=== PATIENT | female | born 1945 | race Caucasian/White ===

== ENCOUNTER → 2018-01-13 14:31 | Outpatient (CLI) | payer MEDICARE, SELFPAY ==
[2018-01-13 16:25] LABS: Absolute Lymphocyte Count 1.25 X10^3/ul (0.83-4.51); Absolute Neutrophil Count 4.1 X10^3/uL (2.0-7.7); Basophil# 0.02 X10^3/uL; Basophil% 0.3 % (0-1); Eosinophil# 0.07 X10^3/uL; Eosinophils% 1.1 % (0-5); Hematocrit 39.6 % (37-47); Hemoglobin 13.1 g/dl (12.0-15.0); Lymphocyte # 1.25 X10^3/ul (4.0); Lymphocyte % 20.4 % (19-41); Mean Corp Hgb Conc 33.1 g/gl (32-36); Mean Corpuscular Hgb 30.7 pg (27.0-32.0); Mean Corpuscular Volume 92.7 fL (81-99); Mean Platelet Vol. 10.4 fl (6.2-12.0); Monocyte# 0.67 X10^3/uL; Monocyte% 10.9 % (0-10); Neutrophil # 4.12 X10^3/uL (2.7-7.7); Neutrophil % 67.3 % (47-70); Platelet Count 210 K/mm3 (150-450); RBC Distribution Width CV 12.5 % (11.6-14.6); RBC Distribution Width SD 42.1 fl (35.1-43.9); Red Blood Count 4.27 M/mm3 (4.2-5.4); White Blood Count 6.1 K/mm3 (4.4-11.0)
[2018-01-13 16:32] LABS: POSITIVE COUNT NO; POSITIVE DIFFERENTIAL NO; POSITIVE MORPHOLOGY NO
[2018-01-13 16:49] LABS: ALB/GLOB Ratio 1.2 RATIO (0.9-2.4); AST(SGOT) 15 U/L (15-37); Alanine Aminotransfer ALT/SGPT 15 U/L (13-56); Albumin, Serum 4.2 g/dL (3.2-5.0); Alkaline Phosphatase 72 U/L (45-117); Anion Gap 8 (5-15); BUN 18 mg/dL (7-18); BUN/Creat Ratio 18.3 RATIO (10-20); Calcium,Total 9.1 mg/dL (8.5-10.1); Chloride 103 mmol/L (98-107); Creatinine, Serum 0.98 mg/dL (0.55-1.02); EST Glomerular Filtration Rate 59 mL/min (>60); Est Glom Filt Rate - Afr Amer 71 mL/min (>60); Globulin 3.6 g/dL (2.2-4.2); Glucose 88 mg/dL (74-106); Magnesium 2.2 mg/dL (1.6-2.6); Potassium 3.7 mmol/L (3.5-5.1); Protein, Total 7.8 g/dL (6.4-8.2); Rheumatoid Factor < 10.0 IU/mL (<15); Sodium Level 140 mmol/L (136-145); Thyroid Stim Hormone (TSH) 1.74 uIU/mL (0.358-3.74)
[2018-01-13 16:51] LABS: Erythrocyte Sedimentation Rate 3 mm/hr (0-30)
[2018-01-15 15:31] LABS: ANTINUCLEAR ANTIBODIES DIRECT Negative (Negative)
== END ==
PROVIDERS: Family Provider Family Medicine; PCP Family Medicine; Visit Provider Family Medicine
DX: I73.00 Raynaud's syndrome without gangrene (principal); I99.9 Unspecified disorder of circulatory system; R53.83 Other fatigue
CPT/HCPCS: 80053; 83735; 84443; 85025; 85652; 86038; 86431

== ENCOUNTER → 2018-01-26 09:47 | Outpatient (CLI) | payer MEDICARE, SELFPAY ==
--- NOTE | 2018-01-31 18:39 | LEAS_ITS ---
Arterial Study - Arterial Study Arterial Study: This is a 72-year-old female with suspected peripheral arterial occlusive disease. She was brought to the non-invasive vascular laboratory for the purpose of bilateral noninvasive lower extremity arterial assessment. Doppler signal assessment was used to evaluate the pulses at ankle level bilaterally. The posterior tibial and dorsalis pedis pulses were biphasic bilaterally. Segmental limb pressures were obtained bilaterally. The right ankle pressure, as determined by posterior tibial pulse, could not be determined due to the noncompressibility of the vasculature. The right ankle pressure, as determined by dorsalis pedis pulse, was measured at 189 mmHg. The right digital pressure could not be determined due to the noncompressibility of the vasculature. The left ankle pressure, as determined by posterior tibial and dorsalis pedis pulses , could not be determined due to the noncompressibility of the vasculature. The left digital pressure could not be determined due to the noncompressibility of the vasculature. The resting right ankle-brachial index was calculated to be 0.80. The resting left ankle-brachial index could not be determined due to the noncompressibility of the vasculature. Digital-brachial indices could not be determined on either side due to the noncompressibility of the vasculature. Impression: Based upon the findings of this resting noninvasive lower extremity study, there is evidence of diffuse arterial calcification in the lower extremities bilaterally. As a result, the resting ankle-brachial indices and digital-brachial indices could not be reliably obtained. The resting right ankle-brachial index is 0.80, but may be factitiously elevated due to arterial calcification. An ankle-brachial index of 0.80 on the right is suggestive of mild to moderate arterial occlusive disease, although the degree of arterial occlusive disease may be more severe, and not accurately reflected in this study. As a result of arterial calcification, the resting left ankle-brachial index could not be determined, nor could digital-brachial indices be determined bilaterally.
== END ==
PROVIDERS: Family Provider Family Medicine; PCP Family Medicine; Visit Provider Family Medicine
DX: I73.00 Raynaud's syndrome without gangrene (principal)
CPT/HCPCS: 93922

== ENCOUNTER 2018-02-04 06:01 | Observation (INO) | payer MEDICARE, SELFPAY ==
[2018-02-04] VITALS (10 sets, daily range): BP systolic 141–195; BP diastolic 46–61; PULSE 77–106; RESP 12–18; TEMP 36.4–37.5; O2SAT 97–100; BMI 19.7
--- NOTE | 2018-02-04 06:23 | EKG12_ITS ---
Test Reason : PALPITATIONS Blood Pressure : / mmHG Vent. Rate : 090 BPM Atrial Rate : 090 BPM P-R Int : 130 ms QRS Dur : 088 ms QT Int : 376 ms P-R-T Axes : 070 057 055 degrees QTc Int : 459 ms Sinus rhythm with occasional Premature ventricular complexes Consider voltage criteria for LVH Left ventricular hypertrophy Abnormal ECG Confirmed by MAURICE SULTANA, DARRELL ([id number]), proposal editor TADEO ALLEN ([id number]) on 02/09/2018 3:19:27 PM Referred By: VIDHYA Confirmed By:DARRELL RICHARDS MD
--- NOTE | 2018-02-04 06:23 | CT_ITS ---
STUDY: CTA CHEST REASON FOR EXAM: Female, 72 years old. Chest pain. Tachycardia. Anxiety. Possible aneurysm. RADIATION DOSAGE (If Supplied By Facility): CTDIvol = ( 11.56 ) mGy, DLP = ( 470.98 ) mGycm TECHNIQUE: The examination was performed with the intravenous administration of 75mL ml of Isovue 370 contrast material. Post-processing of the angiographic images was performed, with multiplanar reformation and 3D reconstruction. Individualized dose optimization techniques were used for this CT. COMPARISON: None. FINDINGS: Irregular appearance of both thyroid lobes, likely with nodules. Not a dedicated CT angiogram of the pulmonary arteries. More a CT angiogram of the aorta. No large pulmonary emboli are identified centrally. Normal thoracic aorta and visualized great vessels. There is no demonstrated aortic dissection. No thoracic aortic aneurysm. Normal heart and pericardium. Normal mediastinum. Normal hilar regions. Normal visualized trachea and bronchi. The lungs are hyper expanded, with flattening of the hemidiaphragms. Lungs are clear. No concerning masses or nodules. Normal pleura. Normal chest wall structures. There are degenerative changes of thoracic spine. IMPRESSION: 1. Negative for thoracic aortic aneurysm or dissection 2. No large central pulmonary embolism 3. COPD. Lungs are clear. Electronically Signed: Louis Martins DO at 7:42 EDT Tel , Service support , STUDY: CTA OF THE ABDOMINAL AORTA REASON FOR EXAM: Female, 72 years old. Possible aortic aneurysm. Chest pain and back pain RADIATION DOSAGE (If Supplied By Facility): CTDIvol = ( 11.56 ) mGy, DLP = ( 470.98 ) mGycm TECHNIQUE: Axial CT angiography multi-detector data acquisition was obtained from the hemidiaphragms to the pubic symphysis following intravenous administration of 75mL ml of Isovue 370 contrast. Axial images and MIP images were reconstructed from the axial data set. Post-processing of the angiographic images was performed, with multiplanar reformation and 3D reconstruction. Individualized dose optimization techniques were used for this CT. TECHNICAL QUALITY: Good COMPARISON: None. Descriptors of Narrowing: None (0%) Mild (< 50%) Moderate (50-70%) Severe (70-90%) Subtotal/Total Occlusion (90-100%) Non-Evaluable (technically non-diagnostic FINDINGS: Abdominal aorta: No demonstrated narrowing. Celiac and superior mesenteric arteries: There is mild diffuse narrowing. Inferior mesenteric artery: There is mild diffuse narrowing. Right renal artery(arteries): There is mild diffuse narrowing. Left renal artery(arteries): There is mild diffuse narrowing. Right common iliac artery: No demonstrated narrowing. Right external iliac artery: No demonstrated narrowing. Right internal iliac artery: No demonstrated narrowing. Left common iliac artery: No demonstrated narrowing. Left external iliac artery: No demonstrated narrowing. Left internal iliac artery: No demonstrated narrowing. No evidence of abdominal aortic aneurysm or dissection. Mild atherosclerotic disease of the abdominal aorta. Grossly unremarkable appearance of the liver, spleen, pancreas, gallbladder, adrenal glands. Both kidneys are grossly within normal limits. Unremarkable appearance of the stomach and small bowel. Large bowel demonstrates some chronic diverticulosis and fecal retention. Unremarkable appendix. No concerning lymphadenopathy. Unremarkable bladder. Uterine atrophy is noted. Osseous degenerative changes. CT/CTA Chest W/WO Contrast IMPRESSION: 1. Negative for abdominal aortic aneurysm or dissection 2. Remainder is within normal limits Electronically Signed: Louis Martins DO at 7:45 EDT Tel , Service support ,
--- NOTE | 2018-02-04 06:24 | CT_ITS ---
STUDY: CTA CHEST REASON FOR EXAM: Female, 72 years old. Chest pain. Tachycardia. Anxiety. Possible aneurysm. RADIATION DOSAGE (If Supplied By Facility): CTDIvol = ( 11.56 ) mGy, DLP = ( 470.98 ) mGycm TECHNIQUE: The examination was performed with the intravenous administration of 75mL ml of Isovue 370 contrast material. Post-processing of the angiographic images was performed, with multiplanar reformation and 3D reconstruction. Individualized dose optimization techniques were used for this CT. COMPARISON: None. FINDINGS: Irregular appearance of both thyroid lobes, likely with nodules. Not a dedicated CT angiogram of the pulmonary arteries. More a CT angiogram of the aorta. No large pulmonary emboli are identified centrally. Normal thoracic aorta and visualized great vessels. There is no demonstrated aortic dissection. No thoracic aortic aneurysm. Normal heart and pericardium. Normal mediastinum. Normal hilar regions. Normal visualized trachea and bronchi. The lungs are hyper expanded, with flattening of the hemidiaphragms. Lungs are clear. No concerning masses or nodules. Normal pleura. Normal chest wall structures. There are degenerative changes of thoracic spine. IMPRESSION: 1. Negative for thoracic aortic aneurysm or dissection 2. No large central pulmonary embolism 3. COPD. Lungs are clear. Electronically Signed: Louis Martins DO at 7:42 EDT Tel , Service support , STUDY: CTA OF THE ABDOMINAL AORTA REASON FOR EXAM: Female, 72 years old. Possible aortic aneurysm. Chest pain and back pain RADIATION DOSAGE (If Supplied By Facility): CTDIvol = ( 11.56 ) mGy, DLP = ( 470.98 ) mGycm TECHNIQUE: Axial CT angiography multi-detector data acquisition was obtained from the hemidiaphragms to the pubic symphysis following intravenous administration of 75mL ml of Isovue 370 contrast. Axial images and MIP images were reconstructed from the axial data set. Post-processing of the angiographic images was performed, with multiplanar reformation and 3D reconstruction. Individualized dose optimization techniques were used for this CT. TECHNICAL QUALITY: Good COMPARISON: None. Descriptors of Narrowing: None (0%) Mild (< 50%) Moderate (50-70%) Severe (70-90%) Subtotal/Total Occlusion (90-100%) Non-Evaluable (technically non-diagnostic FINDINGS: Abdominal aorta: No demonstrated narrowing. Celiac and superior mesenteric arteries: There is mild diffuse narrowing. Inferior mesenteric artery: There is mild diffuse narrowing. Right renal artery(arteries): There is mild diffuse narrowing. Left renal artery(arteries): There is mild diffuse narrowing. Right common iliac artery: No demonstrated narrowing. Right external iliac artery: No demonstrated narrowing. Right internal iliac artery: No demonstrated narrowing. Left common iliac artery: No demonstrated narrowing. Left external iliac artery: No demonstrated narrowing. Left internal iliac artery: No demonstrated narrowing. No evidence of abdominal aortic aneurysm or dissection. Mild atherosclerotic disease of the abdominal aorta. Grossly unremarkable appearance of the liver, spleen, pancreas, gallbladder, adrenal glands. Both kidneys are grossly within normal limits. Unremarkable appearance of the stomach and small bowel. Large bowel demonstrates some chronic diverticulosis and fecal retention. Unremarkable appendix. No concerning lymphadenopathy. Unremarkable bladder. Uterine atrophy is noted. Osseous degenerative changes. CT/CT ANGIO ABD&PEL W/O&W/DYE IMPRESSION: 1. Negative for abdominal aortic aneurysm or dissection 2. Remainder is within normal limits Electronically Signed: Louis Martins DO at 7:45 EDT Tel , Service support ,
--- NOTE | 2018-02-04 06:27 | ED.DCSUM_ITS ---
- ER Visit Summary Date of Service: 02/04/18 Chief Complaint: Palpitations History of Present Illness: The patient is a 72 F with recently diagnosed hypertension and now on escitalopram for anxiety presents for palpitations since last night. Patient noticed her heart was racing after she went to bed last night. She took an Advil PM and was still aware of her heartbeat through the night. She could feel it in her chest and into her abdomen. She has associated shortness of breath and this morning felt lightheaded and like she was going to faint. She has been on the escitalopram for 3 days. She denies any fever, chest pain, abdominal pain, nausea or vomiting, diarrhea. She has had prior sensation of palpitations but never with associated symptoms of shortness of breath and lightheadedness. Physical Examination: Vital signs: afebrile, hemodynamically stable, no hypoxia on room air General: well nourished, well developed, slender, in no distress Skin: warm, dry, no rash, no pallor HEENT: normocephalic and atraumatic; PERRL, EOMI, moist mucous membranes Cardiovascular: Irregular rate and rhythm without murmurs, no peripheral edema, 2+ pulses all distal extremities Respiratory: No increased work of breathing, lungs are clear to auscultation bilaterally, no rales, rhonchi or wheezing Abdominal: Abdomen is soft, nontender with normoactive bowel sounds, no guarding or rebound, hyperdynamic pulsatile aorta palpable in the abdomen MSK: Moves all extremities, no deformities, normal strength Neuro: Awake and alert, oriented ?4. No facial droop, sensation and motor function intact and symmetric Test Results: Abnormal Lab Results 02/04/18 02/04/18 02/04/18 06:35 06:35 06:35 WBC 7.2 RBC 4.40 Hgb 13.7 Hct 41.0 MCV 93.2 MCH 31.1 MCHC 33.4 RDW 12.2 RDW Differential 41.0 Plt Count 265 MPV 9.9 Immature Gran % (Auto) 0.100 Neut % (Auto) 62.9 Lymph % (Auto) 25.5 Louisa % (Auto) 9.7 Eos % (Auto) 1.4 Baso % (Auto) 0.4 Absolute Neuts (auto) 4.5 Absolute Lymphs (auto) 1.84 Total Counted Not Reportable PT 13.1 INR 1.0 APTT 23.2 L Sodium 142 Potassium 4.1 Chloride 107 Carbon Dioxide 26.0 Anion Gap 9 BUN 17 Creatinine 1.25 H Estim Creat Clear Calc 35.12 Est GFR (MDRD) Af Amer 54 L Est GFR (MDRD) Non-Af 45 L BUN/Creatinine Ratio 13.6 Glucose 110 H Calcium 9.2 Troponin I < 0.02 TSH 4.56 H Clinical Impression(s) from Imaging Studies Chest CTA 02/04/18 06:23 IMPRESSION: 1. Negative for abdominal aortic aneurysm or dissection 2. Remainder is within normal limits Abdomen/Pelvis CTA 02/04/18 06:24 IMPRESSION: 1. Negative for abdominal aortic aneurysm or dissection 2. Remainder is within normal limits Emergency Department Course and Treatment: Patient presents with hypertension and palpitations with mild tachycardia of variable rate, sinus rhythm on EKG without ischemia or ectopy. Occasional PVC noted. Patient does have a very noted pulsatile mass in the abdomen that is likely her aorta palpable because of her slender frame. However given her associated symptoms, CTA of the chest abdomen and pelvis was performed to rule out aortic aneurysm or other aortic pathology. There was no evidence of large PE or aortic dissection/aneurysm labs showed no leukocytosis or anemia. Renal function was decreased from baseline. Troponin negative. TSH checked and was mildly elevated. Patient had continued increase in her blood pressure and was given a small dose of labetalol. Blood pressure improved. On reevaluation patient's heart rate had slowed down and she was feeling better, but continued to feel anxious and was concerned about the near syncope this morning. Patient has never had a cardiac workup, and given that she is an elderly female she is higher risk for atypical presentation of ACS. Patient will be admitted for further workup of her palpitations with shortness of breath and near syncope. Patient received aspirin in the emergency department as well as IV hydration. Treatment Plan: [] Disposition: [] Impression: Rotations, uncontrolled hypertension, acute renal insufficiency This note was generated with [employer] dictation software. It may contain incorrect words, spelling, and punctuation that were not noted in review of the chart prior to signing ED Disposition - Plan for ED Patient: Chief Complaint: Palpitations Referrals: Deacon Seth MD [Primary Care Provider] -
[2018-02-04] MEDS: 0.9% Normal Saline 1,000 ML 1000 ML IV (06:35)
[2018-02-04 06:45] LABS: Absolute Lymphocyte Count 1.84 X10^3/ul (0.83-4.51); Absolute Neutrophil Count 4.5 X10^3/uL (2.0-7.7); Basophil# 0.03 X10^3/uL; Basophil% 0.4 % (0-1); Eosinophils% 1.4 % (0-5); Hemoglobin 13.7 g/dl (12.0-15.0); Lymphocyte # 1.84 X10^3/ul (4.0); Lymphocyte % 25.5 % (19-41); Mean Corp Hgb Conc 33.4 g/gl (32-36); Mean Corpuscular Hgb 31.1 pg (27.0-32.0); Mean Corpuscular Volume 93.2 fL (81-99); Mean Platelet Vol. 9.9 fl (6.2-12.0); Monocyte% 9.7 % (0-10); Neutrophil # 4.54 X10^3/uL (2.7-7.7); Neutrophil % 62.9 % (47-70); Platelet Count 265 K/mm3 (150-450); RBC Distribution Width CV 12.2 % (11.6-14.6); White Blood Count 7.2 K/mm3 (4.4-11.0)
[2018-02-04 06:48] LABS: POSITIVE COUNT NO; POSITIVE DIFFERENTIAL NO; POSITIVE MORPHOLOGY NO
[2018-02-04 06:56] LABS: Partial Thromboplast Time 23.2 Seconds (24.1-36.2); Prothrombin Time (Protime)PT. 13.1 SECONDS (11.7-14.9)
[2018-02-04 07:07] LABS: Anion Gap 9 (5-15); BUN 17 mg/dL (7-18); BUN/Creat Ratio 13.6 RATIO (10-20); Calcium,Total 9.2 mg/dL (8.5-10.1); Chloride 107 mmol/L (98-107); Creatinine, Serum 1.25 mg/dL (0.55-1.02); EST Glomerular Filtration Rate 45 mL/min (>60); Est Glom Filt Rate - Afr Amer 54 mL/min (>60); Estimated Creatinine Clearance 35.12 ml/min; Glucose 110 mg/dL (74-106); Potassium 4.1 mmol/L (3.5-5.1); Sodium Level 142 mmol/L (136-145); Thyroid Stim Hormone (TSH) 4.56 uIU/mL (0.358-3.74)
[2018-02-04] MEDS: Labetalol 100 MG/20 ML Vial 10 MG IV (08:09)
[2018-02-04] MEDS: Aspirin 81 MG TAB.CHEW 324 MG PO (08:33)
--- NOTE | 2018-02-04 08:33 | NURSING ---
DR MARIA EUGENIA KEE
--- NOTE | 2018-02-04 08:39 | NURSING ---
PCU OBS ELEVATED BP , DEHYDRATION, SOB ASHELFAH
--- NOTE | 2018-02-04 09:48 | PCM.HP.STD ---
Problem List (1) Hypertension Status: Chronic History of Present Illness Date of Admission: 02/04/18 Chief Complaint: Anxiety, overwhelmed. The patient is a 72 year old F with recent diagnosis of hypertension started recently on lisinopril presented to the emergency room because of anxiety. Patient stated that she could not sleep last night, felt overwhelmed, anxious and she started having palpitations and she was about to faint after long time of being anxious and restless. She mentioned that she has been having issues with anxiety over the last several months. Her 2 years ago and since then, she has been having issues with sleep and anxiety. She stated that when she goes to her kids in [place] and [place], she feels better. Couple weeks ago, she went to [place] for her daughter and when she came back, she thought that her is waiting for her. She denied chest pain, shortness of breath, dizziness or lightheadedness. She denies syncope. 6 days ago, she was started on lisinopril for high blood pressure. She mentioned that recently, her blood pressure went up to more than 200. In the emergency room, her blood pressure was 195/61, was tachycardic, afebrile and his pulse ox was 99% on room air. Her routine blood work was remarkable for creatinine of 1.25, otherwise normal. Her TSH was 4.56. Her EKG revealed normal sinus rhythm with occasional PVCs, no acute ischemic changes. Troponin is negative. CTA abdomen, pelvis and chest done and I am not sure why and they were unremarkable without evidence of acute vascular occlusion or stenosis and no PE or dissection. She is being admitted for observation for elevated blood pressure, elevated TSH, anxiety and dehydration. Past Medical History Past Medical History (Chronic Problems): Chronic Problems Hypertension (Chronic) Allergies No Known Allergies Allergy (Verified 02/04/18 06:04) Home Medications: Ambulatory Orders Medication Instructions Recorded Escitalopram Oxalate [Lexapro] 5 mg PO DAILY 02/04/18 Lisinopril [Zestril] 20 mg PO DAILY 02/04/18 Surgical History: no surgical history Psychiatric History: Anxiety [employer] History: No pertinent [employer]GER history Lives: Alone Smoking Status: Never smoker Alcohol: None Drugs: None - *Family History Maternal History Items: No pertinent history Paternal History Items: No pertinent history Review of Systems Constitutional: Denies: Anorexia, Chills, Fever, Weakness Eyes: Denies: Blurred vision, Double vision, Drainage, Redness HEENT: Denies: Difficulty Hearing, Ear Pain, Eye Pain, Nasal Congestion, Sore Throat Cardiovascular: Reports: Palpitations. Denies: Chest Pain, Chest Pressure, Chest Tightness, Heaviness, Light Headedness, Paroxysmal Noc. Dyspnea, Syncope Respiratory: Denies: Cough, Hemoptysis, Pleuritic Pain, Shortness of Breath, Sputum production, Wheezing Gastrointestinal: Denies: Abdominal Pain, Constipation, Diarrhea, Nausea, Vomiting Genitourinary: Denies: Dysuria, Frequency, Hematuria Musculoskeletal: Denies: Arm Pain, Back Pain, Foot Pain Skin: Denies: Dryness, Rash Neurological: Denies: Balance problems, Double vision, Change in Speech, Slurred speech, Confusion, Incoordination, Numbness, Tingling Psychiatric: Reports: Anxiety. Denies: Depression VTE Information - Inpt Only VTE Present on Admission: No VTE Mechan Device Prophylaxis: None VTE Pharm Prophylaxis ordered?: Yes - Physical Exam General: Alert, Oriented x3, Cooperative, No apparent distress HEENT: Atraumatic, PERRLA, EOMI Oral: Moist Mucosa, No Gingival or Mucosal Lesions/ Ulcerations Neck: Supple, No JVD, Negative Carotid Bruits, Trachea Midline, Thyroid Normal Size and Texture Lungs: Clear to auscultation, Normal air movement, No rhonchi, No wheeze, No rales Cardiovascular: Regular rate, Regular Rhythm, Normal S1, Normal S2, PMI Normal Abdomen: Bowel Sounds Present, Soft, Non Tender, Non-Distended, No Hepato-splenomegaly Extremities: No clubbing, No cyanosis, No edema Skin: No rashes, No breakdown Lymphatic: No Cervical, Supraclavicular, or Inguinal Adenopathy Neurological: Cranial nerves II-XII grossly intact, Motor Exam 5/5 strength throughout Psych/Mental Status: Normal Affect, Anxious, Alert and oriented to time, place, person, mood and affect Vital Signs Temp Pulse Resp BP Pulse Ox 98.5 F 79 16 174/57 H 99 02/04/18 09:45 02/04/18 09:45 02/04/18 09:45 02/04/18 09:45 02/04/18 09:45 Oxygen Delivery Method Room Air Weight: 118 lb 9.739 oz Body Mass Index (BMI) 19.7 Laboratory Tests 02/04/18 02/04/18 02/04/18 Range/Units 06:35 06:35 06:35 WBC 7.2 (4.4-11.0) K/mm3 RBC 4.40 (4.2-5.4) M/mm3 Hgb 13.7 (12.0-15.0) g/dl Hct 41.0 (37-47) % MCV 93.2 (81-99) fL MCH 31.1 (27.0-32.0) pg MCHC 33.4 (32-36) g/gl RDW 12.2 (11.6-14.6) % RDW Differential 41.0 (35.1-43.9) fl Plt Count 265 (150-450) K/mm3 MPV 9.9 (6.2-12.0) fl Immature Gran % (Auto) 0.100 (0.0-0.9) % Neut % (Auto) 62.9 (47-70) % Lymph % (Auto) 25.5 (19-41) % Humphreys % (Auto) 9.7 (0-10) % Eos % (Auto) 1.4 (0-5) % Baso % (Auto) 0.4 (0-1) % Absolute Neuts (auto) 4.5 (2.0-7.7) X10^3/uL Absolute Lymphs (auto) 1.84 (0.83-4.51) X10^3/ul Total Counted Not Reportable PT 13.1 (11.7-14.9) SECONDS INR 1.0 APTT 23.2 L (24.1-36.2) Seconds Sodium 142 (136-145) mmol/L Potassium 4.1 (3.5-5.1) mmol/L Chloride 107 (98-107) mmol/L Carbon Dioxide 26.0 (21.0-32.0) mmol/L Anion Gap 9 (5-15) BUN 17 (7-18) mg/dL Creatinine 1.25 H (0.55-1.02) mg/dL Estim Creat Clear Calc 35.12 ml/min Est GFR (MDRD) Af Amer 54 L (>60) mL/min Est GFR (MDRD) Non-Af 45 L (>60) mL/min BUN/Creatinine Ratio 13.6 (10-20) RATIO Glucose 110 H (74-106) mg/dL Calcium 9.2 (8.5-10.1) mg/dL Troponin I < 0.02 (<0.06) ng/mL TSH 4.56 H (0.358-3.74) uIU/mL Clinical Impression(s) from Imaging Studies Chest CTA 02/04/18 06:23 IMPRESSION: 1. Negative for abdominal aortic aneurysm or dissection 2. Remainder is within normal limits Electronically Signed: Louis MartinsDO at 7:45 EDT Tel , Service support , Abdomen/Pelvis CTA 02/04/18 06:24 IMPRESSION: 1. Negative for abdominal aortic aneurysm or dissection 2. Remainder is within normal limits Electronically Signed: Louis MartinsDO at 7:45 EDT Tel , Service support , Assessment/Plan This is a 72 years old female patient presented to the emergency room because of anxiety, insomnia, palpitation and she was found to have elevated blood pressure, dehydration and elevated TSH. #1 uncontrolled hypertension: Initial blood pressure was 195/61, received 1 dose of IV labetalol and came down to 170s. She has systolic hypertension. She was started recently on lisinopril. Her EKG revealed normal sinus rhythm with PVCs, no acute ischemic changes. Troponin is negative. CTA chest showed no PE or dissection. CTA abdomen was unremarkable. Probably, her blood pressure is not controlled because of anxiety. Plan: Admit to PCU for observation, cardiac monitoring, serial cardiac enzymes, repeat EKG tomorrow morning, start Norvasc, continue lisinopril, IV fluids, PT OT evaluation and treatment. At this time, I doubt any cardiac event and no indication for further cardiac workup unless her EKG or cardiac enzymes changes. #2 anxiety: Her 2 years ago, has been having issues with anxiety and insomnia since then. She was started recently on Lexapro. She could not sleep last night. Plan: Continue Lexapro, Ambien as needed, Ativan as needed. #3 dehydration: Baseline kidney function is normal. Admission creatinine 1.25. Plan: IV fluids, repeat BMP tomorrow morning. #4 elevated TSH: Without obvious symptoms of hypothyroidism. Her TSH is 4.56. Plan: Free T3, free T4, total T4. #5 DVT prophylaxis: Subcu heparin. This note was generated with [employer] dictation software. It may contain incorrect words, spelling, and punctuation that were not noted in checking the note before signing. Code Visit OBSV E&M: 15806 Initial observation care L2
--- NOTE | 2018-02-04 09:56 | HP.PCM_ITS ---
Problem List (1) Hypertension Status: Chronic History of Present Illness Date of Admission: 02/04/18 Chief Complaint: Anxiety, overwhelmed. The patient is a 72 year old F with recent diagnosis of hypertension started recently on lisinopril presented to the emergency room because of anxiety. Patient stated that she could not sleep last night, felt overwhelmed, anxious and she started having palpitations and she was about to faint after long time of being anxious and restless. She mentioned that she has been having issues with anxiety over the last several months. Her 2 years ago and since then, she has been having issues with sleep and anxiety. She stated that when she goes to her kids in [place] and [place], she feels better. Couple weeks ago, she went to [place] for her daughter and when she came back, she thought that her is waiting for her. She denied chest pain, shortness of breath, dizziness or lightheadedness. She denies syncope. 6 days ago, she was started on lisinopril for high blood pressure. She mentioned that recently , her blood pressure went up to more than 200. In the emergency room, her blood pressure was 195/61, was tachycardic, afebrile and his pulse ox was 99% on room air. Her routine blood work was remarkable for creatinine of 1.25, otherwise normal. Her TSH was 4.56. Her EKG revealed normal sinus rhythm with occasional PVCs, no acute ischemic changes. Troponin is negative. CTA abdomen , pelvis and chest done and I am not sure why and they were unremarkable without evidence of acute vascular occlusion or stenosis and no PE or dissection. She is being admitted for observation for elevated blood pressure, elevated TSH, anxiety and dehydration. 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 Denies: Chest Pain, Chest Pressure, Chest Tightness, Heaviness, Light Headedness, Paroxysmal Noc. Dyspnea, Syncope Respiratory: Denies: Cough, Hemoptysis, Pleuritic Pain, Shortness of Breath, Sputum production, Wheezing Gastrointestinal: Denies: Abdominal Pain, Constipation, Diarrhea, Nausea, Vomiting Genitourinary: Denies: Dysuria, Frequency, Hematuria Musculoskeletal: Denies: Arm Pain, Back Pain, Foot Pain Skin: Denies: Dryness, Rash Neurological: Denies: Balance problems, Double vision, Change in Speech, Slurred speech, Confusion, Incoordination, Numbness, Tingling Psychiatric: Reports: Anxiety. Denies: Depression VTE Information - Inpt Only VTE Present on Admission: No VTE Mechan Device Prophylaxis: None VTE Pharm Prophylaxis ordered?: Yes - Physical Exam General: Alert, Oriented x3, Cooperative, No apparent distress HEENT: Atraumatic, PERRLA, EOMI Oral: Moist Mucosa, No Gingival or Mucosal Lesions/ Ulcerations Neck: Supple, No JVD, Negative Carotid Bruits, Trachea Midline, Thyroid Normal Size and Texture Lungs: Clear to auscultation, Normal air movement, No rhonchi, No wheeze, No rales Cardiovascular: Regular rate, Regular Rhythm, Normal S1, Normal S2, PMI Normal Abdomen: Bowel Sounds Present, Soft, Non Tender, Non-Distended, No Hepato- splenomegaly Extremities: No clubbing, No cyanosis, No edema Skin: No rashes, No breakdown Lymphatic: No Cervical, Supraclavicular, or Inguinal Adenopathy Neurological: Cranial nerves II-XII grossly intact, Motor Exam 5/5 strength throughout Psych/Mental Status: Normal Affect, Anxious, Alert and oriented to time, place, person, mood and affect Vital Signs Temp Pulse Resp BP Pulse Ox 98.5 F 79 16 174/57 H 99 02/04/18 09:45 02/04/18 09:45 02/04/18 09:45 02/04/18 09:45 02/04/18 09:45 Oxygen Delivery Method Room Air Weight: 118 lb 9.739 oz Body Mass Index (BMI) 19.7 Laboratory Tests 3 02/04/18 02/04/18 02/04/18 Range/Units 06:35 06:35 06:35 WBC 7.2 (4.4-11.0) K/mm3 RBC 4.40 (4.2-5.4) M/mm3 Hgb 13.7 (12.0-15.0) g/dl Hct 41.0 (37-47) % MCV 93.2 (81-99) fL MCH 31.1 (27.0-32.0) pg MCHC 33.4 (32-36) g/gl RDW 12.2 (11.6-14.6) % RDW Differential 41.0 (35.1-43.9) fl Plt Count 265 (150-450) K/mm3 MPV 9.9 (6.2-12.0) fl Immature Gran % (Auto) 0.100 (0.0-0.9) % Neut % (Auto) 62.9 (47-70) % Lymph % (Auto) 25.5 (19-41) % [place] % (Auto) 9.7 (0-10) % Eos % (Auto) 1.4 (0-5) % Baso % (Auto) 0.4 (0-1) % Absolute Neuts (auto) 4.5 (2.0-7.7) X10^3/uL Absolute Lymphs (auto) 1.84 (0.83-4.51) X10^3/ul Total Counted Not Reportable PT 13.1 (11.7-14.9) SECONDS INR 1.0 APTT 23.2 L (24.1-36.2) Seconds Sodium 142 (136-145) mmol/L Potassium 4.1 (3.5-5.1) mmol/L Chloride 107 (98-107) mmol/L Carbon Dioxide 26.0 (21.0-32.0) mmol/L Anion Gap 9 (5-15) BUN 17 (7-18) mg/dL Creatinine 1.25 H (0.55-1.02) mg/dL Estim Creat Clear Calc 35.12 ml/min Est GFR (MDRD) Af Amer 54 L (>60) mL/min Est GFR (MDRD) Non-Af 45 L (>60) mL/min BUN/Creatinine Ratio 13.6 (10-20) RATIO Glucose 110 H (74-106) mg/dL Calcium 9.2 (8.5-10.1) mg/dL Troponin I < 0.02 (<0.06) ng/mL TSH 4.56 H (0.358-3.74) uIU/mL Clinical Impression(s) from Imaging Studies Chest CTA 02/04/18 06:23 IMPRESSION: 1. Negative for abdominal aortic aneurysm or dissection 2. Remainder is within normal limits Electronically Signed: Louis MartinsDO at 7:45 EDT Tel , Service support , Abdomen/Pelvis CTA 02/04/18 06:24 IMPRESSION: 1. Negative for abdominal aortic aneurysm or dissection 2. Remainder is within normal limits Electronically Signed: Louis MartinsDO at 7:45 EDT Tel , Service support , Assessment/Plan This is a 72 years old female patient presented to the emergency room because of anxiety, insomnia, palpitation and she was found to have elevated blood pressure, dehydration and elevated TSH. #1 uncontrolled hypertension: Initial blood pressure was 195/61, received 1 dose of IV labetalol and came down to 170s. She has systolic hypertension. She was started recently on lisinopril. Her EKG revealed normal sinus rhythm with PVCs, no acute ischemic changes. Troponin is negative. CTA chest showed no PE or dissection. CTA abdomen was unremarkable. Probably, her blood pressure is not controlled because of anxiety. Plan: Admit to PCU for observation, cardiac monitoring, serial cardiac enzymes, repeat EKG tomorrow morning, start Norvasc, continue lisinopril, IV fluids, PT OT evaluation and treatment. At this time, I doubt any cardiac event and no indication for further cardiac workup unless her EKG or cardiac enzymes changes. #2 anxiety: Her 2 years ago, has been having issues with anxiety and insomnia since then. She was started recently on Lexapro. She could not sleep last night. Plan: Continue Lexapro, Ambien as needed, Ativan as needed. #3 dehydration: Baseline kidney function is normal. Admission creatinine 1.25. Plan: IV fluids, repeat BMP tomorrow morning. #4 elevated TSH: Without obvious symptoms of hypothyroidism. Her TSH is 4.56. Plan: Free T3, free T4, total T4. #5 DVT prophylaxis: Subcu heparin. This note was generated with [employer] software. It may contain incorrect words, spelling, and punctuation that were not noted in checking the note before signing. Code Visit OBSV E&M: 94685 Initial observation care L2
[2018-02-04 10:28] LABS: Free T3 2.8 pg/mL (2.18-3.98); T4 Free Direct 1.16 ng/dL (0.76-1.46)
[2018-02-04] MEDS: LORazepam 0.5 MG Tablet PO ×2 (11:27→21:40)
[2018-02-04] MEDS: Lisinopril 20 MG Tablet PO (11:28)
[2018-02-04] MEDS: 0.9% Normal Saline 1,000 ML 75 ML IV (11:29)
[2018-02-04] MEDS: amLODIPine 5 MG Tablet PO (11:40)
[2018-02-04] MEDS: Heparin Injection 5,000 UNITS/ML Syringe 5000 UNITS SC ×2 (13:18→21:40)
[2018-02-04] MEDS: 0.9% NaCl Peripheral Flush Adult/Peds IV (13:20)
[2018-02-05 01:49] VITALS: BP 130/45; PULSE 76; RESP 12; TEMP 36.9; O2SAT 97
[2018-02-05 02:01] VITALS: PULSE 86
[2018-02-05 03:05] VITALS: PULSE 73
[2018-02-05 05:34] VITALS: BP 132/39; PULSE 66; RESP 16; TEMP 36.6; O2SAT 97
[2018-02-05] MEDS: Heparin Injection 5,000 UNITS/ML Syringe 5000 UNITS SC (05:38)
--- NOTE | 2018-02-05 05:55 | EKG12_ITS ---
Test Reason : AM EKG Blood Pressure : / mmHG Vent. Rate : 067 BPM Atrial Rate : 067 BPM P-R Int : 128 ms QRS Dur : 084 ms QT Int : 410 ms P-R-T Axes : 065 074 086 degrees QTc Int : 433 ms Normal sinus rhythm Normal ECG Confirmed by MAURICE SULTANA, DARRELL ([id number]), acquisition editor TADEO ALLEN ([id number]) on 02/06/2018 1:25:00 PM Referred By: DR DEL CID Confirmed By:DARRELL RICHARDS MD
[2018-02-05 06:16] LABS: Anion Gap 7 (5-15); BUN 17 mg/dL (7-18); BUN/Creat Ratio 18.1 RATIO (10-20); Calcium,Total 8.4 mg/dL (8.5-10.1); Chloride 111 mmol/L (98-107); Creatinine, Serum 0.94 mg/dL (0.55-1.02); EST Glomerular Filtration Rate 62 mL/min (>60); Est Glom Filt Rate - Afr Amer 75 mL/min (>60); Estimated Creatinine Clearance 45.27 ml/min; Glucose 87 mg/dL (74-106); Potassium 4.2 mmol/L (3.5-5.1); Sodium Level 144 mmol/L (136-145)
[2018-02-05 06:57] VITALS: PULSE 75
--- NOTE | 2018-02-05 08:05 | PCM.DC ---
- Discharge Diagnoses Current Active Problems: Current Active and Chronic Problems Hypertension (Chronic) You will use the following diet at home:: Cardiac Your food should be the consistency of: Regular Discharge Activity: Return to Normal Activity Weight Bearing Status: Weight bearing as tolerated Call your doctor if you observe: Fever of 101 or Higher, Shortness of breath, Dizziness, Fainting spells, Chest pain, Increased palpitations (irregular heartbeat), Uncontrolled pain Instructions: Discharge Instructions: Taking Your Blood Pressure, Controlling High Blood Pressure, Understanding Panic Disorder (Panic Attack), Treating Anxiety Disorders with Medication Allergies/Adverse Reactions: Allergies No Known Allergies Allergy (Verified 02/04/18 06:04) Medications to take at Discharge Escitalopram Oxalate [Lexapro] 5 mg PO DAILY 02/04/18 Lisinopril [Zestril] 20 mg PO DAILY 02/04/18 Amlodipine [Norvasc] 5 mg PO DAILY #30 tab 02/05/18 Lorazepam [Ativan] 0.5 mg PO QHS PRN PRN #14 tab 02/05/18 The following prescriptions were given: Amlodipine [Norvasc] 5 mg PO DAILY #30 tab Lorazepam [Ativan] 0.5 mg PO QHS PRN PRN #14 tab PRN Reason: Anxiety, insomnia Primary Care Physician: Deacon Seth MD [Primary Care Provider] - Please follow up with your Primary Care Physician in: as scheduled.
--- NOTE | 2018-02-05 09:35 | CASEMGMT ---
CM provided patient with brochure and information on [facility]. Patient acknowledged her depression and states she's heard about our [facility] from others. Patient accepts the information and thanks CM. Pharmacy verified. Patient states she lives alone, no DME or new needs. Anticipated discharge today.
[2018-02-05] MEDS: amLODIPine 5 MG Tablet PO (09:38)
[2018-02-05] MEDS: Lisinopril 20 MG Tablet PO (09:38)
[2018-02-05] MEDS: Escitalopram Oxalate 10 MG Tablet 5 MG PO (09:38)
[2018-02-05 09:40] VITALS: BP 157/48; PULSE 95; RESP 16; O2SAT 97
--- NOTE | 2018-02-05 12:50 | PCM.DC.SUM ---
Discharge Date and Diagnosis Date of Admission: 02/04/18 Date of Discharge: 02/05/18 - Primary Discharge Diagnosis #1 anxiety/panic attack. #2 uncontrolled hypertension. #3 mild dehydration. - Secondary Discharge Diagnosis Chronic Problems Hypertension (Chronic) Hospital Course and Treatment Imaging Results: Clinical Impression(s) from Imaging Studies Chest CTA 02/04/18 06:23 IMPRESSION: 1. Negative for abdominal aortic aneurysm or dissection 2. Remainder is within normal limits Electronically Signed: Louis KumarDO sharath at 7:45 EDT Tel , Service support , Abdomen/Pelvis CTA 02/04/18 06:24 IMPRESSION: 1. Negative for abdominal aortic aneurysm or dissection 2. Remainder is within normal limits Electronically Signed: Louis KumarDO sharath at 7:45 EDT Tel , Service support , Operations: None Procedures: EKG Summary of Care Provided: Patient seen and examined on the day of discharge and appeared to be stable to be discharged home. She denies any complaints. She mentioned that she was able to sleep last night and Ativan worked fine. Her vital signs are stable, blood pressure stabilized. - Physical Exam General: Alert, Oriented x3, Cooperative, No apparent distress. HEENT: Atraumatic, PERRLA, EOMI. Neck: Supple, No JVD, Negative Carotid Bruits, Trachea Midline, Thyroid Normal. Lungs: Clear to auscultation, Normal air movement, No rhonchi, No wheeze, No rales. Cardiovascular: Regular rate, Regular Rhythm, Normal S1, Normal S2, PMI Normal. Abdomen: Bowel Sounds Present, Soft, Non Tender, Non-Distended, No Hepato-splenomegaly. Extremities: No clubbing, No cyanosis, No edema Skin: No rashes, No breakdown Neurological: Neuro grossly intact Vital Signs are stable. Hospital course: The patient is a 72 year old F admitted because of symptoms seem to be consistent with acute panic attack and anxiety. Her main complaint was that she felt overwhelmed, anxious and she started having palpitation. Upon arrival to ER, patient was hypotensive and tachycardic. His EKG revealed normal sinus rhythm with occasional PVCs, no acute ischemic changes. Her troponin was negative ?4. Her routine blood work was unremarkable. Initially, blood pressure was elevated up to 195/61 and once patient calm down, it came down to around 130 systolic. In the emergency department, patient had CTA abdomen, pelvis and chest and I am not sure why she had all of these imaging studies that revealed no evidence of acute pathology. CTA chest showed no PE or dissection. Patient was likely dehydrated and his creatinine was 1.25 and her baseline creatinine was normal. She received IV fluids, started on Ativan as needed for anxiety and insomnia and started for Norvasc for hypertension and continued on lisinopril. Today, patient felt much better, blood pressure improved significantly. Repeat EKG again showed no acute ischemic changes. Troponin negative ?4. ACS ruled out. Her symptoms attributed to anxiety and panic attack. TSH was 4.56, slightly above reference range. Her free T4, total T4 and free T3 were normal. She denies any symptoms suggestive of hypothyroidism. Patient discharged home in a stable medical condition, discharged on Ativan 0.5 mg p.o. nightly as needed, discharged on Norvasc 5 mg p.o. daily, continued on lisinopril and Celexa, recommended follow-up with PCP in 1 week. Discharge Activity: Return to Normal Activity Weight Bearing Status: Weight bearing as tolerated Call your doctor if you observe: Fever of 101 or Higher, Shortness of breath, Dizziness, Fainting spells, Chest pain, Increased palpitations (irregular heartbeat), Uncontrolled pain Home Medications: Medications to take at Discharge Escitalopram Oxalate [Lexapro] 5 mg PO DAILY 02/04/18 Lisinopril [Zestril] 20 mg PO DAILY 02/04/18 Amlodipine [Norvasc] 5 mg PO DAILY #30 tab 02/05/18 Lorazepam [Ativan] 0.5 mg PO QHS PRN PRN #14 tab 02/05/18 Following Prescrptions Were Given to Patient: Amlodipine [Norvasc] 5 mg PO DAILY #30 tab Lorazepam [Ativan] 0.5 mg PO QHS PRN PRN #14 tab PRN Reason: Anxiety, insomnia Primary Care Physician: Deacon Seth MD [Primary Care Provider] - Please follow up with your Primary Care Physician in: as scheduled. Patient Instructions: Controlling High Blood Pressure, Understanding Panic Disorder (Panic Attack), Treating Anxiety Disorders with Medication, Discharge Instructions: Taking Your Blood Pressure Disposition: Home Minutes spent on discharge:: 25 Patient Condition:: Stable Medical Necessity - Tobacco Use Smoking Status: Never smoker Meaningful Use Info Meaningful Use Diagnoses (Choose all that apply): None applicable Code Visit OBSV E&M: 78980 Observation care discharge
--- NOTE | 2018-02-05 12:56 | DS.PCM_ITS ---
Discharge Date and Diagnosis Date of Admission: 02/04/18 Date of Discharge: 02/05/18 - Primary Discharge Diagnosis #1 anxiety/panic attack. #2 uncontrolled hypertension. #3 mild dehydration. - Secondary Discharge Diagnosis Chronic Problems Hypertension (Chronic) Hospital Course and Treatment Imaging Results: Clinical Impression(s) from Imaging Studies Chest CTA 02/04/18 06:23 IMPRESSION: 1. Negative for abdominal aortic aneurysm or dissection 2. Remainder is within normal limits Electronically Signed: Louis KumarDO sharath at 7:45 EDT Tel , Service support , Abdomen/Pelvis CTA 02/04/18 06:24 IMPRESSION: 1. Negative for abdominal aortic aneurysm or dissection 2. Remainder is within normal limits Electronically Signed: Louis KumarDO sharath at 7:45 EDT Tel , Service support , Operations: None Procedures: EKG Summary of Care Provided: Patient seen and examined on the day of discharge and appeared to be stable to be discharged home. She denies any complaints. She mentioned that she was able to sleep last night and Ativan worked fine. Her vital signs are stable, blood pressure stabilized. - Physical Exam General: Alert, Oriented x3, Cooperative, No apparent distress. HEENT: Atraumatic, PERRLA, EOMI. Neck: Supple, No JVD, Negative Carotid Bruits, Trachea Midline, Thyroid Normal. Lungs: Clear to auscultation, Normal air movement, No rhonchi, No wheeze, No rales. Cardiovascular: Regular rate, Regular Rhythm, Normal S1, Normal S2, PMI Normal. Abdomen: Bowel Sounds Present, Soft, Non Tender, Non-Distended, No Hepato- splenomegaly. Extremities: No clubbing, No cyanosis, No edema Skin: No rashes, No breakdown Neurological: Neuro grossly intact Vital Signs are stable. Hospital course: The patient is a 72 year old F admitted because of symptoms seem to be consistent with acute panic attack and anxiety. Her main complaint was that she felt overwhelmed, anxious and she started having palpitation. Upon arrival to ER, patient was hypotensive and tachycardic. His EKG revealed normal sinus rhythm with occasional PVCs, no acute ischemic changes. Her troponin was negative ?4. Her routine blood work was unremarkable. Initially, blood pressure was elevated up to 195/61 and once patient calm down, it came down to around 130 systolic. In the emergency department, patient had CTA abdomen, pelvis and chest and I am not sure why she had all of these imaging studies that revealed no evidence of acute pathology. CTA chest showed no PE or dissection. Patient was likely dehydrated and his creatinine was 1.25 and her baseline creatinine was normal. She received IV fluids, started on Ativan as needed for anxiety and insomnia and started for Norvasc for hypertension and continued on lisinopril. Today, patient felt much better, blood pressure improved significantly. Repeat EKG again showed no acute ischemic changes. Troponin negative ?4. ACS ruled out. Her symptoms attributed to anxiety and panic attack. TSH was 4.56, slightly above reference range. Her free T4, total T4 and free T3 were normal. She denies any symptoms suggestive of hypothyroidism. Patient discharged home in a stable medical condition, discharged on Ativan 0.5 mg p.o. nightly as needed, discharged on Norvasc 5 mg p.o. daily, continued on lisinopril and Celexa, recommended follow-up with PCP in 1 week. Discharge Activity: Return to Normal Activity Weight Bearing Status: Weight bearing as tolerated Call your doctor if you observe: Fever of 101 or Higher, Shortness of breath, Dizziness, Fainting spells, Chest pain, Increased palpitations (irregular heartbeat), Uncontrolled pain Home Medications: Medications to take at Discharge Escitalopram Oxalate [Lexapro] 5 mg PO DAILY 02/04/18 Lisinopril [Zestril] 20 mg PO DAILY 02/04/18 Amlodipine [Norvasc] 5 mg PO DAILY #30 tab 02/05/18 Lorazepam [Ativan] 0.5 mg PO QHS PRN PRN #14 tab 02/05/18 Following Prescrptions Were Given to Patient: Amlodipine [Norvasc] 5 mg PO DAILY #30 tab Lorazepam [Ativan] 0.5 mg PO QHS PRN PRN #14 tab PRN Reason: Anxiety, insomnia Primary Care Physician: Deacon Seth MD [Primary Care Provider] - Please follow up with your Primary Care Physician in: as scheduled. Patient Instructions: Controlling High Blood Pressure, Understanding Panic Disorder (Panic Attack), Treating Anxiety Disorders with Medication, Discharge Instructions: Taking Your Blood Pressure Disposition: Home Minutes spent on discharge:: 25 Patient Condition:: Stable Medical Necessity - Tobacco Use Smoking Status: Never smoker Meaningful Use Info Meaningful Use Diagnoses (Choose all that apply): None applicable Code Visit OBSV E&M: 22989 Observation care discharge
== END 2018-02-05 08:07 | disposition home or self-care (01) ==
LOC: ED 07:05 → PCU 08:50
PROVIDERS: Admitting Provider Hospitalist; Emergency Provider Emergency Medicine; Family Provider Family Medicine; PCP Family Medicine; Visit Provider Hospitalist
DX: F41.0 Panic disorder [episodic paroxysmal anxiety] (principal); I10 Essential (primary) hypertension; E86.0 Dehydration; G47.00 Insomnia, unspecified; R06.02 Shortness of breath; R19.00 Intra-abdominal and pelvic swelling, mass and lump, unspecified site; I49.3 Ventricular premature depolarization; N28.9 Disorder of kidney and ureter, unspecified; R94.6 Abnormal results of thyroid function studies
CPT/HCPCS: 36415; 71275; 74174; 80048; 84436; 84439; 84443; 84481; 84484; 85025; 85610; 85730; 93005; 96361; 96372; 96374; 99218; 99285; J7030; Q9967; A4216; G0378

== ENCOUNTER → 2018-07-17 08:35 | Outpatient (CLI) | payer MEDICARE, SELFPAY ==
[2018-07-17 10:22] LABS: Vitamin D,25 Hydroxy 19.2 ng/mL (29.95-100.01)
[2018-07-17 10:28] LABS: Anion Gap 8 (5-15); BUN 15 mg/dL (7-18); BUN/Creat Ratio 12.2 RATIO (10-20); Calcium,Total 9.2 mg/dL (8.5-10.1); Chloride 105 mmol/L (98-107); Cholesterol 219 mg/dL (200); Creatinine, Serum 1.23 mg/dL (0.55-1.02); EST Glomerular Filtration Rate 45 mL/min (>60); Est Glom Filt Rate - Afr Amer 55 mL/min (>60); Glucose 87 mg/dL (74-106); High Density Lipoprotein 70 mg/dL; Potassium 4.1 mmol/L (3.5-5.1); Sodium Level 139 mmol/L (136-145); T4 Free Direct 0.89 ng/dL (0.76-1.46); Thyroid Stim Hormone (TSH) 3.89 uIU/mL (0.358-3.74); Triglycerides 126 mg/dL; Very Low Density Lipoprotein 25 mg/dL (5-40)
== END ==
PROVIDERS: Family Provider Family Medicine; PCP Family Medicine; Visit Provider Family Medicine
DX: I10 Essential (primary) hypertension (principal); R94.6 Abnormal results of thyroid function studies; Z13.21 Encounter for screening for nutritional disorder
CPT/HCPCS: 36415; 80048; 80061; 82306; 84439; 84443

== ENCOUNTER → 2019-01-07 09:41 | Outpatient (CLI) | payer MEDICARE, SELFPAY ==
[2018-02-04 09:41] VITALS: BMI 19.7
--- NOTE | 2019-01-07 09:43 | BI_ITS ---
MAMMOGRAPHY - BILATERAL SCREENING REASON FOR EXAM: Female, 73 years old. Routine annual screening examination. PERTINENT HISTORY: NO FAM HX - NO PREV SURG'S - BILAT MOLES MARKED - TECHNIQUE: Digital bilateral breast starr (3D mammographic acquisition) in the CC and MLO projections. 2-D mediolateral oblique (MLO) and craniocaudad (CC) views of both breasts were obtained. CAD: Full Field Digital Mammography with Computer Added Detection was performed. COMPARISON: PREV 15+ YRS AGO - UNAVAILABLE FINDINGS: Breast Composition: The breasts are heterogeneously dense, which may obscure small masses. There are no dominant masses or suspicious calcifications. No other significant abnormalities are identified. BI/SCREENING MAMM (CAD), BILAT IMPRESSION: Stable bilateral screening mammogram. Yearly follow-up mammogram recommended. (A) ASSESSMENT CATEGORY: BIRADS Category 2: Benign. A letter regarding these results will be sent to the patient by the facility within 30 days. Approximately 10% of breast cancers are not detected by mammography. A normal mammogram should not delay biopsy of a clinically suspicious abnormality. [id number] Electronically Signed: Anurag Antonio, at 16:32 EDT Tel , Service support ,
--- NOTE | 2019-01-07 10:07 | BD_ITS ---
STUDY: DUAL ENERGY X-RAY ABSORPTIOMETRY / DXA REASON FOR EXAM: Female, 73 years old. The patient is postmenopausal. Loss of height. TECHNIQUE: Bone Mineral Density (BMD) measurements of lumbar spine and bilateral hips were obtained. COMPARISON: None. FINDINGS: Lumbar Spine (L1-L4): g/cm2 (1.043) / T-score (-1.1) / Z-score (0.6) Findings are suggestive of osteopenia with a low fracture risk. Increased thoracic kyphosis. Left Femur Total: g/cm2 (0.717) / T-score (-2.3) / Z-score (-0.6) Left Femoral Neck: g/cm2 (0.773) / T-score (-1.9) / Z-score (0.0) Right Femur Total: g/cm2 (0.719) / T-score (-2.3) / Z-score (-0.6) Right Femoral Neck: g/cm2 (0.733) / T-score (-2.2) / Z-score (-0.3) BD/Dexa Bone Density Study IMPRESSION: The patient is considered osteopenic as outlined below according to World Serge Organization (WHO) criteria with a high fracture risk. Reference Information: The T-score is the number of standard deviations above or below the standard which is normal for young adults at their peak bone mineral density. The World Health Organization (WHO) interprets the T-scores as follows: Above -1 Normal bone density Between -1 and -2.5 Osteopenia Equal to / or below -2.5 Osteoporosis As a practical clinical guideline, osteopenia may be graded as follows: Mild -1 through -1.5 Moderate -1.6 through -2.0 Severe -2.1 through -2.4 The Z-score is the number of standard deviations above or below age-matched controls. A Z-score of less than -1.5 would be considered abnormal. References: 1. NIH Osteoporosis and Related Bone Diseases http://www.osteo.org 2. International Society for Clinical Densitometry http://www.iscd.org 3. National Osteoporosis Foundation http://www.nof.org Electronically Signed: Mitesh Michaud, at 14:50 EDT , Service support ,
== END ==
PROVIDERS: Family Provider Family Medicine; PCP Family Medicine; Referring Provider Family Medicine; Visit Provider Family Medicine
DX: Z12.31 Encounter for screening mammogram for malignant neoplasm of breast (principal); Z78.0 Asymptomatic menopausal state
CPT/HCPCS: 77063; 77067; 77080

== ENCOUNTER → 2019-03-03 12:13 | Outpatient (CLI) | payer MEDICARE, SELFPAY ==
[2018-02-04 09:41] VITALS: BMI 19.7
[2019-03-03 14:51] LABS: Anion Gap 8 (5-15); BUN 22 mg/dL (7-18); BUN/Creat Ratio 15.6 RATIO (10-20); Calcium,Total 9.6 mg/dL (8.5-10.1); Chloride 105 mmol/L (98-107); Creatinine, Serum 1.41 mg/dL (0.55-1.02); EST Glomerular Filtration Rate 39 mL/min (>60); Est Glom Filt Rate - Afr Amer 47 mL/min (>60); Glucose 84 mg/dL (74-106); Potassium 3.9 mmol/L (3.5-5.1); Sodium Level 142 mmol/L (136-145); T4 Free Direct 0.88 ng/dL (0.76-1.46); Thyroid Stim Hormone (TSH) 2.87 uIU/mL (0.358-3.74)
[2019-03-03 14:55] LABS: Vitamin D,25 Hydroxy 28.1 ng/mL (29.95-100.01)
== END ==
PROVIDERS: Family Provider Family Medicine; PCP Family Medicine; Referring Provider Family Medicine; Visit Provider Family Medicine
DX: I10 Essential (primary) hypertension (principal); E55.9 Vitamin D deficiency, unspecified; R94.6 Abnormal results of thyroid function studies
CPT/HCPCS: 36415; 80048; 82306; 84439; 84443

== ENCOUNTER 2019-08-24 11:54 | Emergency (ER) | payer MEDICARE, SELFPAY ==
[2019-08-24 11:59] VITALS: BP 163/59; PULSE 86; RESP 18; TEMP 36.8; O2SAT 100; BMI 18.6
--- NOTE | 2019-08-24 12:14 | ED.DCSUM_ITS ---
History of Present Illness Chief Complaint: Syncope Informant: Patient, Archivist Economic History Onset: Today Context: Sudden Onset Timing: Intermittent Quality: Patient had urge to defecate became lightheaded and passed out Location: Grocery store Current Severity: - - Resolved Maximum Severity: Moderate Worsened by: Urged to defecate Relieved by: Nothing Associated Symptoms: Slight nausea, lightheadedness Narrative: Patient is an elderly woman who was at the grocery store. She had urge to defecate. She states she developed pain when she had to hold it . She became lightheaded and passed out. Paramedics stated she had to go to the emergency room because her heartbeat was irregular. She presently has no symptoms. She has no history of syncope. She denies headache. She denies visual, ocular auditory symptoms. Denies chest pain, shortness of breath, palpitations. She denies abdominal pain or back pain. She denies black or maroon stool. She is not on an anticoagulant. She denies history of PE or DVT. She denies leg pain, swelling or discoloration. She states she has had prior episodes where she felt as if she was in the past when she had to use the restroom. Prior similar symptoms: No Recent Illness/Hospitalization: No - Past Medical History (1) Hypertension Status: Chronic Past Medical History - Allergies and Home Meds Allergies/Adverse Reactions: Allergies No Known Allergies Allergy (Verified 08/24/19 11:58) Primary Care Physician: Deacon Seth MD [Primary Care Provider] - Prior records reviewed: Yes Surgical History: no surgical history Lives: Alone Smoking Status: Never smoker Alcohol: None Drugs: None - Family History Maternal Family History: Reports: No pertinent history Paternal Family History: Reports: No pertinent history Review of Systems General: Denies: Chills, Fever, Sweats Eyes: Denies: Visual changes - bilaterally, Blurred Vision - bilaterally, Diplopia ENT: Denies: Rhinorrhea, Sore throat Cardiovascular: Denies: Chest pain, Palpitations Respiratory: Denies: Dyspnea, Cough, Dyspnea on exertion Gastrointestinal: Reports: Abdominal pain, Nausea. Denies: Diarrhea, Melena, Hematochezia Genitourinary: Denies: Dysuria, Hematuria, Frequency Musculoskeletal: Denies: Back pain, Extremity Pain Skin: Denies: Rash, Wounds Neurological: Denies: Headache, Weakness, Numbness Hematologic: Denies: Easy bruising, Easy bleeding Physical Exam Vital Signs/Narrative: Vital Signs Temp Pulse Resp BP Pulse Ox 08/24/19 11:59 98.2 F 86 18 163/59 H 100 Inital Vital Signs reviewed: Yes General: Well nourished, Well developed, No Acute Distress Head: Normocephalic, Atraumatic Eyes: Perrl, EOMI ENT: Moist mucous membranes, No rhinorrhea Neck: Supple, Nontender Cardiovascular: Regular rate, Regular rhythm, No murmurs, Normal S1, Normal S2 Respiratory: No distress, CTA bilaterally, Chest nontender Abdomen: Soft, Nontender, Nondistended, Normal bowel sounds Back: Nontender, Normal Inspection Extremities: Nontender, No edema Skin: Normal color, No rash Neurological: Alert, Oriented x3, Cranial nerves II-XII grossly intact, Normal Strength, Normal Sensation Psychological: Normal affect, Normal Mood Diagnostic/Tx/Re-eval - Rhythm Strip Rhythm Strip: Sinus Rhythm Ectopy: PVC(s), PAC(s) - EKG Initial EKG Interpretation: Sinus Rhythm - Sinus rhythm with a ventricular rate 85. There are premature ventricular beats noted. OK interval is 124 ms. QS duration 86 ms. QT duration 382 ms. The EKG is normal other than the premature ventricular beats. - Medical Decision Making Patient's history is consistent with vasovagal syncope. Since patient has a unremarkable EKG with no evidence of ischemia and a normal physical exam no further testing is needed. She will be discharged to home. ED Disposition - Plan for ED Patient: Disposition: Home or Assisted Living Diagnosis: Syncope, vasovagal Instructions: SYNCOPE, Vasovagal Referrals: Deacon Seth MD [Primary Care Provider] - Keep Lit appointment
[2019-08-24 12:36] VITALS: BP 156/65; PULSE 78; RESP 18; O2SAT 100
--- NOTE | 2019-08-24 12:36 | ED.RN ---
REVIEWED D/C INSTRUCTIONS, FOLLOW UP CARE, AND S/S THAT WOULD WARRANT A RETURN TO THE ED WITH PT. PT VERBALIZED AN UNDERSTANDING AND DENIES FURTHER QUESTIONS FOR THIS RN. PT SKIN WARM AND DRY, RESP EVEN AND UNLABORED, PT A&O X 3, NO DISTRESS NOTED. PT AMBULATED OUT OF ED, GAIT STEADY.
== END 2019-08-24 12:37 | disposition home or self-care (01) ==
PROVIDERS: Emergency Provider Emergency Medicine; Family Provider Family Medicine; PCP Family Medicine
DX: R55 Syncope and collapse (principal); I49.3 Ventricular premature depolarization; I10 Essential (primary) hypertension; Z79.899 Other long term (current) drug therapy; Z79.82 Long term (current) use of aspirin
CPT/HCPCS: 93005; 99284; J7030

== ENCOUNTER → 2019-08-25 12:01 | Outpatient (CLI) | payer MEDICARE, SELFPAY ==
[2019-08-24 11:59] VITALS: BMI 18.6
[2019-08-25 14:46] LABS: Anion Gap 9 (5-15); BUN 21 mg/dL (7-18); BUN/Creat Ratio 15.6 RATIO (10-20); Calcium,Total 9.1 mg/dL (8.5-10.1); Chloride 109 mmol/L (98-107); Creatinine, Serum 1.35 mg/dL (0.55-1.02); EST Glomerular Filtration Rate 41 mL/min (>60); Est Glom Filt Rate - Afr Amer 49 mL/min (>60); Glucose 95 mg/dL (74-106); Potassium 4.4 mmol/L (3.5-5.1); Sodium Level 145 mmol/L (136-145); Thyroid Stim Hormone (TSH) 2.27 uIU/mL (0.358-3.74)
== END ==
PROVIDERS: Family Provider Family Medicine; PCP Family Medicine; Referring Provider Family Medicine; Visit Provider Family Medicine
DX: I10 Essential (primary) hypertension (principal); R94.6 Abnormal results of thyroid function studies; E03.9 Hypothyroidism, unspecified
CPT/HCPCS: 36415; 80048; 84443

== ENCOUNTER → 2020-02-23 10:56 | Outpatient (CLI) | payer MEDICARE, SELFPAY ==
[2020-02-23 12:24] LABS: Anion Gap 7 (5-15); BUN 26 mg/dL (7-18); BUN/Creat Ratio 16.8 RATIO (10-20); Calcium,Total 9.3 mg/dL (8.5-10.1); Chloride 105 mmol/L (98-107); Creatinine, Serum 1.55 mg/dL (0.55-1.02); EST Glomerular Filtration Rate 35 mL/min (>60); Est Glom Filt Rate - Afr Amer 42 mL/min (>60); Glucose 95 mg/dL (74-106); Potassium 3.8 mmol/L (3.5-5.1); Sodium Level 140 mmol/L (136-145); Thyroid Stim Hormone (TSH) 2.19 uIU/mL (0.358-3.74)
[2020-02-23 12:53] LABS: Vitamin D,25 Hydroxy 32.8 ng/mL
== END ==
PROVIDERS: PCP Family Medicine; Visit Provider Family Medicine
DX: I10 Essential (primary) hypertension (principal); E55.9 Vitamin D deficiency, unspecified; R94.6 Abnormal results of thyroid function studies
CPT/HCPCS: 36415; 80048; 82306; 84443

== ENCOUNTER → 2020-03-09 11:04 | Outpatient (CLI) | payer MEDICARE, SELFPAY ==
[2020-03-09 13:16] LABS: Anion Gap 6 (5-15); BUN 23 mg/dL (7-18); BUN/Creat Ratio 15.5 RATIO (10-20); Calcium,Total 8.9 mg/dL (8.5-10.1); Chloride 105 mmol/L (98-107); Creatinine, Serum 1.48 mg/dL (0.55-1.02); EST Glomerular Filtration Rate 37 mL/min (>60); Est Glom Filt Rate - Afr Amer 44 mL/min (>60); Glucose 108 mg/dL (74-106); Potassium 4.2 mmol/L (3.5-5.1); Sodium Level 140 mmol/L (136-145)
== END ==
PROVIDERS: PCP Family Medicine; Referring Provider Family Medicine; Visit Provider Family Medicine
DX: I10 Essential (primary) hypertension (principal)
CPT/HCPCS: 36415; 80048

== ENCOUNTER → 2020-08-30 11:08 | Outpatient (CLI) | payer MEDICARE, SELFPAY ==
[2020-08-30 13:00] LABS: Anion Gap 6 (5-15); BUN 25 mg/dL (7-18); BUN/Creat Ratio 14.9 RATIO (10-20); Calcium,Total 9.4 mg/dL (8.5-10.1); Chloride 108 mmol/L (98-107); Creatinine, Serum 1.68 mg/dL (0.55-1.02); EST Glomerular Filtration Rate 32 mL/min (>60); Est Glom Filt Rate - Afr Amer 38 mL/min (>60); Glucose 94 mg/dL (74-106); Potassium 4.7 mmol/L (3.5-5.1); Sodium Level 139 mmol/L (136-145)
== END ==
PROVIDERS: PCP Family Medicine; Referring Provider Family Medicine; Visit Provider Family Medicine
DX: N18.9 Chronic kidney disease, unspecified (principal)
CPT/HCPCS: 36415; 80048

== ENCOUNTER → 2020-09-29 10:11 | Outpatient (CLI) | payer MEDICARE, SELFPAY ==
[2020-09-29 12:25] LABS: Anion Gap 4 (5-15); BUN 29 mg/dL (7-18); Calcium,Total 8.7 mg/dL (8.5-10.1); Chloride 109 mmol/L (98-107); Creatinine, Serum 1.32 mg/dL (0.55-1.02); EST Glomerular Filtration Rate 42 mL/min (>60); Est Glom Filt Rate - Afr Amer 50 mL/min (>60); Glucose 95 mg/dL (74-106); Potassium 3.9 mmol/L (3.5-5.1); Sodium Level 140 mmol/L (136-145)
== END ==
PROVIDERS: PCP Family Medicine; Referring Provider Family Medicine; Visit Provider Family Medicine
DX: N18.9 Chronic kidney disease, unspecified (principal)
CPT/HCPCS: 36415; 80048

== ENCOUNTER → 2020-09-29 12:10 | Outpatient (CLI) | payer MEDICARE, SELFPAY ==
--- NOTE | 2020-09-29 12:12 | BI_ITS ---
MAMMOGRAPHY - BILATERAL SCREENING REASON FOR EXAM: Female, 75 years old. Routine annual screening examination. PERTINENT HISTORY: Non-contributory. TECHNIQUE: Digital bilateral breast maria r (3D mammographic acquisition) in the CC and MLO projections. 2-D mediolateral oblique (MLO) and craniocaudad (CC) views of both breasts were obtained. CAD: Full Field Digital Mammography with Computer Added Detection was performed. COMPARISON: Comparison is made with prior study dated 01/07/2019. FINDINGS: Breast Composition: The breasts are heterogeneously dense, which may obscure small masses. There are no dominant masses or suspicious calcifications. No other significant abnormalities are identified. There has been no significant change since the prior study. BI/SCREEN MAMM (CAD) W/MARIA R BILAT IMPRESSION: Stable bilateral screening mammogram. Yearly follow-up mammogram recommended. (A) ASSESSMENT CATEGORY: BIRADS Category 1: Negative. A letter regarding these results will be sent to the patient by the facility within 30 days. Approximately 10% of breast cancers are not detected by mammography. A normal mammogram should not delay biopsy of a clinically suspicious abnormality. [id number] Electronically Signed: Mitesh Michaud, at 12:48 EST , Service support ,
== END ==
PROVIDERS: PCP Family Medicine; Referring Provider Family Medicine; Visit Provider Family Medicine
DX: Z12.31 Encounter for screening mammogram for malignant neoplasm of breast (principal); N18.9 Chronic kidney disease, unspecified
CPT/HCPCS: 36415; 77063; 77067; 80048

== ENCOUNTER → 2021-02-28 09:49 | Outpatient (CLI) | payer MEDICARE, SELFPAY ==
[2021-02-28 12:35] LABS: Anion Gap 7 (5-15); BUN 22 mg/dL (7-18); BUN/Creat Ratio 13.8 RATIO (10-20); Calcium,Total 9.5 mg/dL (8.5-10.1); Chloride 105 mmol/L (98-107); EST Glomerular Filtration Rate 33 mL/min (>60); Est Glom Filt Rate - Afr Amer 40 mL/min (>60); Glucose 94 mg/dL (74-106); Sodium Level 140 mmol/L (136-145)
== END ==
PROVIDERS: PCP Family Medicine; Referring Provider Family Medicine; Visit Provider Family Medicine
DX: I10 Essential (primary) hypertension (principal)
CPT/HCPCS: 36415; 80048

== ENCOUNTER → 2021-05-28 10:42 | Outpatient (CLI) | payer MEDICARE, SELFPAY ==
[2021-05-28 12:20] LABS: Anion Gap 7 (5-15); BUN 23 mg/dL (7-18); BUN/Creat Ratio 13.1 RATIO (10-20); Calcium,Total 8.9 mg/dL (8.5-10.1); Chloride 103 mmol/L (98-107); Creatinine, Serum 1.75 mg/dL (0.55-1.02); EST Glomerular Filtration Rate 30 mL/min (>60); Est Glom Filt Rate - Afr Amer 36 mL/min (>60); Glucose 127 mg/dL (74-106); Potassium 4.3 mmol/L (3.5-5.1); Sodium Level 136 mmol/L (136-145)
== END ==
PROVIDERS: PCP Family Medicine; Referring Provider Family Medicine; Visit Provider Family Medicine
DX: N18.9 Chronic kidney disease, unspecified (principal)
CPT/HCPCS: 36415; 80048

== ENCOUNTER → 2021-06-15 11:30 | Outpatient (CLI) | payer MEDICARE, SELFPAY ==
[2021-06-15 15:23] LABS: Hematocrit 32.4 % (37-47); Hemoglobin 10.2 g/dL (12.0-15.0); Mean Corp Hgb Conc 31.5 g/dL (32-36); Mean Corpuscular Hgb 30.5 pg (27.0-32.0); Mean Platelet Vol. 10.1 fl (6.2-12.0); Platelet Count 234 K/mm3 (150-450); RBC Distribution Width CV 12.6 % (11.6-14.6); RBC Distribution Width SD 44.8 fl (35.1-43.9); Red Blood Count 3.34 M/mm3 (4.2-5.4); White Blood Count 5.2 K/mm3 (4.4-11.0)
[2021-06-15 15:49] LABS: Vitamin D,25 Hydroxy 34.1 ng/mL
[2021-06-15 15:55] LABS: ALB/GLOB Ratio 1.3 RATIO (0.9-2.4); AST(SGOT) 23 U/L (15-37); Alanine Aminotransfer ALT/SGPT 23 U/L (13-56); Albumin, Serum 3.9 g/dL (3.2-5.0); Alkaline Phosphatase 79 U/L (45-117); Anion Gap 5 (5-15); BUN 27 mg/dL (7-18); Calcium,Total 8.8 mg/dL (8.5-10.1); Chloride 104 mmol/L (98-107); Creatinine, Serum 1.35 mg/dL (0.55-1.02); EST Glomerular Filtration Rate 40 mL/min (>60); Est Glom Filt Rate - Afr Amer 49 mL/min (>60); Glucose 107 mg/dL (74-106); Iron 65 ug/dL (50-170); Potassium 4.6 mmol/L (3.5-5.1); Protein, Total 6.9 g/dL (6.4-8.2); Sodium Level 137 mmol/L (136-145)
[2021-06-18 13:08] LABS: ANTINUCLEAR ANTIBODIES DIRECT Negative (Negative)
== END ==
PROVIDERS: PCP Family Medicine; Visit Provider Family Medicine
DX: N18.30 Chronic kidney disease, stage 3 unspecified (principal); N18.9 Chronic kidney disease, unspecified
CPT/HCPCS: 36415; 80053; 82306; 83540; 85027; 86038

== ENCOUNTER → 2021-06-27 07:50 | Outpatient (CLI) | payer MEDICARE, SELFPAY ==
--- NOTE | 2021-06-27 07:57 | RDU_ITS ---
Reason For Study: CKD stage 3 Right Renal Artery Left Renal Artery Right renal artery ostium 84.7/16.7 Left renal artery ostium 91.3/12.3 RSV/EDV. PSV/EDV. Right renal artery proximal Left renal artery proximal PSV/EDV 101.6/6.6 PSV/EDV. 100.1/14.5 . Right renal artery mid 172.5/7.9 Left renal artery mid 119.9/14.5 PSV/EDV. PSV/EDV . Right renal artery distal Left renal artery distal 107.9/12.6 119.8/13.9 PSV/EDV. PSV/EDV. Right Renal Parenchyma Left Renal Parenchyma Upper Pole Medula 33.4/6 PSV/EDV. Left upper pole medulla 37.6/7.5 Right upper pole medulla EDR 0.18 . PSV/EDV . Right upper pole medulla R.I. Left upper pole medulla EDR 0.20 . 0.82 . Left upper pole medulla R.I. 0.80 . Upper [place] Cortx 28.9/5.1 PSV/EDV. UP Cortex 29.4/5.7 PSV/EDV. Right upper pole cortex EDR 0.18 . Left upper pole cortex EDR 0.19 . Right upper pole cortex R.I. 0.82 . Left upper pole cortex R.I. 0.81 . Right lower Pole medulla 40.7/6 Left lower Pole medulla 31.2/5.7 PSV/EDV . PSV/EDV . Right lower pole medulla EDR 0.15 . Left lower pole medulla EDR 0.18 . Right lower pole medulla R.I. Left lower pole medulla R.I. 0.82 . 0.85 . Lower Pole Cortx 32.1/5.7 PSV/EDV. Lower Pole Cortex 29.8/5.1 PSV/EDV. Left lower pole cortex EDR 0.18 . Right lower pole cortex EDR 0.17 . Left lower pole cortex R.I. 0.82 . Right lower pole cortex R.I. 0.83 . Left Renal Hilar Right Renal Hilar LT Hilar avg 44.7/4.5 PSV/EDV . Right Hilar avg 68.1/9.7 PSV/EDV. Left hilar acceleration time 40 Right hilar acceleration time 50 m/sec. m/sec. Left Renal Dimensions Right Renal Dimensions Left kidney size 7.27 cm . Right kidney size 8.13 cm . Left cortical dimension 0.97 cm . Right cortical dimension 1.23 cm . Aorta Proximal abdominal aorta 1.67 x 1.66 cm . Proximal abdominal aorta peak systolic velocity is 122.1 cm/sec . Distal abdominal aorta 1.15 x 1.16 cm . Distal abdominal aorta peak systolic velocity is 170 cm/sec . VL/Renal Artery Duplex Ultrasound Interpretation Summary Less than 60% stenosis right renal artery Right renal length small at 8.13 cm Abnormal right renal resistivity indices consistent with intrinsic parenchymal disease Less than 60% stenosis left renal artery Left renal length small at 7.27 cm Abnormal left renal resistive indices consistent with intrinsic parenchymal dis ease Normal maximal aortic diameter 1.67 x 1.66 cm. Calcific disease of the aortic w all noted. Ordering Physician: Deacon Seth Referring Physician: Deacon Seth Performed By: Nayeli Parker RVT
== END ==
PROVIDERS: PCP Family Medicine; Referring Provider Family Medicine; Visit Provider Family Medicine
DX: N18.30 Chronic kidney disease, stage 3 unspecified (principal)
CPT/HCPCS: 93975

== ENCOUNTER 2022-01-22 12:20 | Outpatient (CLI) | payer MEDICARE, SELFPAY ==
--- NOTE | 2022-01-22 12:26 | BD_ITS ---
STUDY: DUAL ENERGY X-RAY ABSORPTIOMETRY / DXA REASON FOR EXAM: Female, 76 years old. Z78.0. The patient is postmenopausal. TECHNIQUE: Bone Mineral Density (BMD) measurements of lumbar spine and bilateral hips were obtained. COMPARISON: Comparison is made with prior study dated 01/07/2019. FINDINGS: Lumbar Spine (L1-L4): g/cm2 (0.897) / T-score (-1.4) / Z-score (1.2) Findings are suggestive of osteopenia with a moderate fracture risk. Left Femur Total: g/cm2 (0.688) / T-score (-2.1) / Z-score (-0.2) Left Femoral Neck: g/cm2 (0.612) / T-score (-2.1) / Z-score (0.1) Right Femur Total: g/cm2 (0.701) / T-score (-2.0) / Z-score (0.0) Right Femoral Neck: g/cm2 (0.588) / T-score (-2.3) / Z-score (-0.2) The T-Scores on the most recent prior examination were: Lumbar Spine (L1-L4): There has been worsening of bone density since the previous examination. Left Femur Total: which represents an improvement of 4.4%. Right Femur Total: which represents an improvement of 6.1%. BD/Dexa Bone Density Study IMPRESSION: The patient is considered osteopenic as outlined below according to World Serge Organization (WHO) criteria with a high fracture risk. There has been improvement of bone density since the previous examination. Reference Information: The T-score is the number of standard deviations above or below the standard which is normal for young adults at their peak bone mineral density. The World Health Organization (WHO) interprets the T-scores as follows: Above -1 Normal bone density Between -1 and -2.5 Osteopenia Equal to / or below -2.5 Osteoporosis As a practical clinical guideline, osteopenia may be graded as follows: Mild -1 through -1.5 Moderate -1.6 through -2.0 Severe -2.1 through -2.4 The Z-score is the number of standard deviations above or below age-matched controls. A Z-score of less than -1.5 would be considered abnormal. References: 1. NIH Osteoporosis and Related Bone Diseases www osteo.org 2. International Society for Clinical Densitometry www iscd.org 3. National Osteoporosis Foundation www nof.org Electronically Signed: Mitesh Michaud MD at 11:05 EDT ,
--- NOTE | 2022-01-22 12:40 | BI_ITS ---
MAMMOGRAPHY - BILATERAL SCREENING REASON FOR EXAM: Female, 76 years old. Routine annual screening examination. PERTINENT HISTORY: Non-contributory. TECHNIQUE: Digital bilateral breast maria r (3D mammographic acquisition) in the CC and MLO projections. 2-D mediolateral oblique (MLO) and craniocaudad (CC) views of both breasts were obtained. CAD: Full Field Digital Mammography with Computer Added Detection was performed. COMPARISON: Comparison is made with prior study dated 09/29/2020 and 01/07/2019. FINDINGS: Breast Composition: The breasts are extremely dense, which lowers the sensitivity of mammography. There are no dominant masses or suspicious calcifications. No other significant abnormalities are identified. There has been no significant change since the prior study. BI/SCRN MAMM (CAD)W/MARIA R BILAT IMPRESSION: Stable bilateral screening mammogram. Yearly follow-up mammogram recommended. (A) ASSESSMENT CATEGORY: BIRADS Category 1: Negative. A letter regarding these results will be sent to the patient by the facility within 30 days. Approximately 10% of breast cancers are not detected by mammography. A normal mammogram should not delay biopsy of a clinically suspicious abnormality. [id number] Electronically Signed: Mitesh Michaud MD at 14:00 EDT ,
== END 2022-01-22 23:59 | disposition home or self-care (01) ==
LOC: OPBD 12:20
PROVIDERS: PCP Family Medicine; Referring Provider Family Medicine; Visit Provider Family Medicine
DX: Z78.0 Asymptomatic menopausal state (principal); Z12.31 Encounter for screening mammogram for malignant neoplasm of breast
CPT/HCPCS: 77063; 77067; 77080

== ENCOUNTER 2022-02-06 12:12 | Outpatient (CLI) | payer MEDICARE, SELFPAY ==
[2022-02-06 15:39] LABS: Anion Gap 7 (5-15); BUN 20 mg/dL (7-18); BUN/Creat Ratio 12.1 RATIO (10-20); Calcium,Total 9.7 mg/dL (8.5-10.1); Chloride 104 mmol/L (98-107); Cholesterol 196 mg/dL (200); Creatinine, Serum 1.65 mg/dL (0.55-1.02); EST Glomerular Filtration Rate 32 mL/min (>60); Est Glom Filt Rate - Afr Amer 39 mL/min (>60); Glucose 80 mg/dL (74-106); High Density Lipoprotein 76 mg/dL; Sodium Level 139 mmol/L (136-145); Triglycerides 114 mg/dL; Very Low Density Lipoprotein 23 mg/dL (5-40)
[2022-02-06 16:24] LABS: Vitamin D,25 Hydroxy 33.4 ng/mL
== END 2022-02-06 23:59 | disposition home or self-care (01) ==
LOC: MFPLAB 12:15
PROVIDERS: PCP Family Medicine; Referring Provider Family Medicine; Visit Provider Family Medicine
DX: E55.9 Vitamin D deficiency, unspecified (principal); I10 Essential (primary) hypertension
CPT/HCPCS: 36415; 80048; 80061; 82306

== ENCOUNTER → 2022-06-03 | Outpatient (CLI) | payer MEDICARE, SELFPAY ==
[2022-06-03 17:54] LABS: Absolute Lymphocyte Count 1.53 X10^3/uL (0.83-4.51); Absolute Neutrophil Count 4.6 X10^3/uL (2.0-7.7); Basophil# 0.05 X10^3/uL; Basophil% 0.7 % (0-1); Eosinophil# 0.06 X10^3/uL; Eosinophils% 0.9 % (0-5); Hematocrit 35.6 % (37-47); Hemoglobin 11.4 g/dL (12.0-15.0); Lymphocyte # 1.53 X10^3/ul (0.83-4.51); Lymphocyte % 22.4 % (19-41); Mean Corpuscular Hgb 30.9 pg (27.0-32.0); Mean Corpuscular Volume 96.5 fL (81-99); Mean Platelet Vol. 10.9 fl (6.2-12.0); Monocyte# 0.59 X10^3/uL; Monocyte% 8.6 % (0-10); NRBC Flagged by Analyzer 0 % (0-5); Neutrophil % 67.3 % (47-70); Platelet Count 201 K/mm3 (150-450); RBC Distribution Width CV 12.5 % (11.6-14.6); RBC Distribution Width SD 44.2 fl (35.1-43.9); Red Blood Count 3.69 M/mm3 (4.2-5.4); White Blood Count 6.8 K/mm3 (4.4-11.0)
[2022-06-03 18:20] LABS: Anion Gap 7 (5-15); BUN 18 mg/dL (7-18); BUN/Creat Ratio 11.2 RATIO (10-20); Calcium,Total 9.2 mg/dL (8.5-10.1); Chloride 105 mmol/L (98-107); Creatinine, Serum 1.61 mg/dL (0.55-1.02); EST Glomerular Filtration Rate 33 mL/min (>60); Est Glom Filt Rate - Afr Amer 40 mL/min (>60); Glucose 97 mg/dL (74-106); Iron 80 ug/dL (50-170); Potassium 3.9 mmol/L (3.5-5.1); Sodium Level 140 mmol/L (136-145)
[2022-06-03 18:24] LABS: PTHIN 97.2 pg/mL (18.4-80.1)
[2022-06-03 18:26] LABS: Vitamin D,25 Hydroxy 44.7 ng/mL
== END | disposition home or self-care (01) ==
LOC: MFPLAB 14:25
PROVIDERS: PCP Family Medicine; Referring Provider Family Medicine; Visit Provider Family Medicine
DX: E55.9 Vitamin D deficiency, unspecified (principal); N18.9 Chronic kidney disease, unspecified
CPT/HCPCS: 36415; 80048; 82306; 83540; 83970; 85025

== ENCOUNTER → 2022-09-19 | Outpatient (CLI) | payer MEDICARE, SELFPAY ==
[2022-09-19 18:29] LABS: Anion Gap 10 (5-15); BUN 22 mg/dL (7-18); BUN/Creat Ratio 16.1 RATIO (10-20); Calcium,Total 8.9 mg/dL (8.5-10.1); Chloride 106 mmol/L (98-107); Creatinine, Serum 1.37 mg/dL (0.55-1.02); EST Glomerular Filtration Rate 40 mL/min (>60); Est Glom Filt Rate - Afr Amer 48 mL/min (>60); Glucose 91 mg/dL (74-106); Sodium Level 141 mmol/L (136-145)
[2022-09-20 08:42] LABS: PTHIN 86.1 pg/mL (18.4-80.1)
== END | disposition home or self-care (01) ==
LOC: MFPLAB 14:52
PROVIDERS: PCP Family Medicine; Referring Provider Family Medicine; Visit Provider Family Medicine
DX: N18.30 Chronic kidney disease, stage 3 unspecified (principal)
CPT/HCPCS: 36415; 80048; 82330; 83970

== ENCOUNTER → 2023-03-24 | Outpatient (CLI) | payer MEDICARE, SELFPAY ==
[2023-03-24 17:58] LABS: Anion Gap 6 (5-15); BUN 20 mg/dL (7-18); BUN/Creat Ratio 12.3 RATIO (10-20); Calcium,Total 10.4 mg/dL (8.5-10.1); Chloride 106 mmol/L (98-107); Creatinine, Serum 1.63 mg/dL (0.55-1.02); EST Glomerular Filtration Rate 32 mL/min (>60); Est Glom Filt Rate - Afr Amer 39 mL/min (>60); Glucose 106 mg/dL (74-106); Potassium 4.5 mmol/L (3.5-5.1); Sodium Level 140 mmol/L (136-145)
[2023-03-25 09:19] LABS: PTHIN 51.9 pg/mL (18.4-80.1)
== END | disposition home or self-care (01) ==
LOC: MTLAB 14:07
PROVIDERS: PCP Family Medicine; Referring Provider Family Medicine; Visit Provider Family Medicine
DX: E34.9 Endocrine disorder, unspecified (principal); N18.30 Chronic kidney disease, stage 3 unspecified
CPT/HCPCS: 36415; 80048; 83970

== ENCOUNTER → 2024-01-22 | Outpatient (CLI) | payer MEDICARE, SELFPAY ==
--- NOTE | 2024-01-22 10:10 | BI_ITS ---
MAMMOGRAPHY - BILATERAL SCREENING REASON FOR EXAM: Female, 78 years old. Routine annual screening examination. PERTINENT HISTORY: Non-contributory. TECHNIQUE: Digital bilateral breast maria r (3D mammographic acquisition) in the CC and MLO projections. 2-D mediolateral oblique (MLO) and craniocaudad (CC) views of both breasts were obtained. CAD: Full Field Digital Mammography with Computer Added Detection was performed. COMPARISON: Comparison is made with prior study dated January 22, 2022 and September 29, 2020. FINDINGS: Breast Composition: The breasts are extremely dense, which lowers the sensitivity of mammography. There are no dominant masses or suspicious calcifications. No other significant abnormalities are identified. There has been no significant change since the prior study. BI/SCRN MAMM (CAD)W/MARIA R BILAT IMPRESSION: Stable bilateral screening mammogram. Yearly follow-up mammogram recommended. (A) ASSESSMENT CATEGORY: BIRADS Category 1: Negative. A letter regarding these results will be sent to the patient by the facility within 30 days. Approximately 10% of breast cancers are not detected by mammography. A normal mammogram should not delay biopsy of a clinically suspicious abnormality. [id number] Electronically Signed: Mitesh Michaud MD at 12:27 EDT ,
== END | disposition home or self-care (01) ==
LOC: OPBI 10:08
PROVIDERS: PCP Family Medicine; Referring Provider Family Medicine; Visit Provider Family Medicine
DX: Z12.31 Encounter for screening mammogram for malignant neoplasm of breast (principal)
CPT/HCPCS: 77063; 77067

== ENCOUNTER → 2024-03-19 | Outpatient (CLI) | payer MEDICARE, SELFPAY ==
[2024-03-19 10:13] LABS: Hematocrit 38.4 % (37-47); Hemoglobin 12.1 g/dL (12.0-15.0); Mean Corp Hgb Conc 31.5 g/dL (32-36); Mean Corpuscular Hgb 30.3 pg (27.0-32.0); Mean Corpuscular Volume 96.2 fL (81-99); Mean Platelet Vol. 10.3 fl (6.2-12.0); Platelet Count 263 K/mm3 (150-450); RBC Distribution Width CV 12.8 % (11.6-14.6); RBC Distribution Width SD 45.4 fl (35.1-43.9); Red Blood Count 3.99 M/mm3 (4.2-5.4); White Blood Count 5.7 K/mm3 (4.4-11.0)
[2024-03-19 11:13] LABS: Anion Gap 5 (5-15); BUN 29 mg/dL (7-18); BUN/Creat Ratio 20.3 RATIO (10-20); Calcium,Total 9.9 mg/dL (8.5-10.1); Chloride 107 mmol/L (98-107); Creatinine, Serum 1.43 mg/dL (0.55-1.02); EST Glomerular Filtration Rate 38 mL/min (>60); Est Glom Filt Rate - Afr Amer 45 mL/min (>60); Glucose 98 mg/dL (74-106); Potassium 3.8 mmol/L (3.5-5.1); Sodium Level 137 mmol/L (136-145)
[2024-03-19 11:53] LABS: PTHIN 55.2 pg/mL (18.4-80.1)
[2024-03-19 11:55] LABS: Vitamin D,25 Hydroxy 47.9 ng/mL
== END | disposition home or self-care (01) ==
LOC: MFPLAB 08:30
PROVIDERS: PCP Family Medicine; Visit Provider Family Medicine
DX: I12.9 Hypertensive chronic kidney disease with stage 1 through stage 4 chronic kidney disease, or unspecified chronic kidney disease (principal); N18.30 Chronic kidney disease, stage 3 unspecified; M85.80 Other specified disorders of bone density and structure, unspecified site
CPT/HCPCS: 36415; 80048; 82306; 83970; 84443; 85027

== ENCOUNTER → 2024-09-23 | Outpatient (CLI) | payer MEDICARE, SELFPAY ==
[2024-09-23 18:06] LABS: Anion Gap 8 (5-15); BUN 14 mg/dL (7-18); BUN/Creat Ratio 8.5 RATIO (10-20); Calcium,Total 10.2 mg/dL (8.5-10.1); Chloride 105 mmol/L (98-107); Creatinine, Serum 1.64 mg/dL (0.55-1.02); EST Glomerular Filtration Rate 32 mL/min (>60); Est Glom Filt Rate - Afr Amer 39 mL/min (>60); Glucose 105 mg/dL (74-106); Iron 75 ug/dL (50-170); Potassium 4.3 mmol/L (3.5-5.1); Sodium Level 138 mmol/L (136-145)
== END | disposition home or self-care (01) ==
LOC: MFPLAB 14:25
PROVIDERS: PCP Family Medicine; Referring Provider Family Medicine; Visit Provider Family Medicine
DX: N18.30 Chronic kidney disease, stage 3 unspecified (principal)
CPT/HCPCS: 36415; 80048; 83540

== ENCOUNTER → 2025-01-25 | Outpatient (CLI) | payer MEDICARE, SELFPAY ==
--- NOTE | 2025-01-25 13:13 | BD_ITS ---
PROCEDURE: DEXA BONE DENSITY STUDY 01/25/2025 REASON FOR EXAM: None provided. TECHNIQUE: DXA scan of the lumbar spine and bilateral hips, using Hologic Horizon W. REFERENCE LINKS: ISCD Adult Positions COMPARISON: Measurements obtained 01/22/2022 are available for comparison however the images themselves are not available for review FINDINGS: LUMBAR SPINE: Bone mineral denisty, L3-L4: 0.901 g/cm??? T-score: -1.8 LEFT FEMORAL NECK: Bone mineral denisty: 0.625 g/cm??? T-score: -2.0 LEFT TOTAL HIP: Bone mineral denisty: 0.649 g/cm??? T-score: -2.4 RIGHT FEMORAL NECK: Bone mineral denisty: 0.663 g/cm??? T-score: -1.7 RIGHT TOTAL HIP: Bone mineral denisty: 0.651 g/cm??? T-score: -2.4 FRAX*: 10 Year Probability of Fracture: Major Osteoporotic Fracture(1): 24.0% Hip Fracture(2): 16.0% *FRAX is a trademark of the [employer] [place] for Metabolic Bone Disease, World Health Organization (WHO) Collaborating [place]. 1-Major Osteoporotic Fracture: Clinical Spine, Forearm, Hip or Shoulder. 2-The 10-year probability of fracture may be lower than reported if the patient has received treatment. The National Osteoporosis Foundation recommends that medical therapy be considered in postmenopausal women and men, age 50 and older, with a: * hip or vertebral fracture * T-score less than or equal to -2.5 in the spine or hip * T-score between -1.0 and -2.5 and FRAX equal to or less than 3 percent for hip fracture or equal to or less than 20 percent for major osteoporotic fracture. World Health Organization criteria for BMD interpretation classify patients as Normal (T-score at or above -1.0), Osteopenic (T-score between -1.0 and -2.5), or Osteoporotic (T-score at or below -2.5). BD/Dexa Bone Density Study IMPRESSION: 1. Bone mineral denisty is borderline but technically very osteopenic. 2. Since 01/22/2022, there has been a decrease of 6.1% in the bone mineral dens ity of the total RIGHT hip. 3. Additional description as above. Reading Location: [facility]
--- NOTE | 2025-01-25 13:13 | BI_ITS ---
EXAM: SCRN MAMM (CAD)W/MARIA R BILAT 01/25/2025 CLINICAL HISTORY: F, Age 79 y/o , SCREENING TECHNIQUE: Bilateral screening digital breast tomosynthesis with 2D and 3D images. Computer aided detection. COMPARISON: Prior exam(s) dated 01/22/2024, 01/22/2022. FINDINGS: TISSUE DENSITY: The breast tissue is heterogenously dense, which may obscure small masses. The mammogram demonstrates that the patient has dense breasts. Supplemental screening with whole breast ultrasound or MRI may be considered for further evaluation. Bilateral Breast Mammographic Findings: No significant masses, calcifications or other abnormalities are identified. BI/SCRN MAMM (CAD)W/MARIA R BILAT IMPRESSION: Right Breast: BIRADS 1 NEGATIVE. Left Breast: BIRADS 1 NEGATIVE. OVERALL FINAL ASSESSMENT: BIRADS 1 NEGATIVE. RECOMMENDATION: Routine annual follow-up in 1 Year A letter with findings and recommendations will be mailed to the patient. Reading Location: [id number]
== END | disposition home or self-care (01) ==
LOC: OPBD 13:11
PROVIDERS: PCP Family Medicine; Referring Provider Family Medicine; Visit Provider Family Medicine
DX: Z12.31 Encounter for screening mammogram for malignant neoplasm of breast (principal); N95.9 Unspecified menopausal and perimenopausal disorder
CPT/HCPCS: 77063; 77067; 77080

== ENCOUNTER → 2025-01-31 | Outpatient (CLI) | payer MEDICARE, SELFPAY ==
[2025-01-31 11:55] LABS: Ionized Calcium Order ORDER TUBE
[2025-01-31 13:06] LABS: PTHIN 54 pg/mL (11-61)
[2025-01-31 13:32] LABS: Anion Gap 11 (5-15); BUN 19 mg/dL (4-19); Calcium,Total 9.7 mg/dL (7.6-11.0); Carbon Dioxide 25.3 mmol/L (21.0-32.0); Chloride 103 mmol/L (98-108); EST Glomerular Filtration Rate 32 (>60); Glucose 101 mg/dL (70-99); Magnesium 1.7 mg/dL (1.5-2.2); Phosphorus 3.3 mg/dL (2.7-4.5); Potassium 3.9 mmol/L (3.3-5.1); Sodium Level 138 mmol/L (133-145)
== END | disposition home or self-care (01) ==
LOC: MFPLAB 10:52
PROVIDERS: PCP Family Medicine; Referring Provider Family Medicine; Visit Provider Family Medicine
DX: I10 Essential (primary) hypertension (principal)
CPT/HCPCS: 36415; 80048; 82306; 82330; 83735; 83970; 84100; 84443